=== PATIENT | female | born 1930 ===

== ENCOUNTER 2017-02-06 11:27 | Inpatient (IN) | payer MEDICARE ==
[2017-02-06] MEDS ORDERED: Sodium Chloride 0.9% 500 ML IV STA (11:55)
--- NOTE | 2017-02-06 12:08 | ED PDOC ---
HPI: Fever Fever Onset Was: 01/30/17 Did The Patient Have A Seizure Today: No Symptoms Associated With Fever: Other (poor appetite and increased weakness) Additional Comments: Arsalan Stuart is a 87 y/o female, with a past medical history of dementia and Hypertension, who was brought to the ER for fever associated with increased weakness onset this week. Daughter states the patient has had poor appetite and 3 falls. However, daughter is unsure if the patient hit her head. Coughing noted ongoing for months, also she has had frequent UTIs in the past. Patient has no medical complaints. PMD: in [facility] Past Medical History Reviewed: Historical Data, Nursing Documentation, Vital Signs Vital Signs: Last Vital Signs Temp 99.7 F H 02/06/17 14:49 Pulse 105 H 02/06/17 14:53 Resp 18 02/06/17 11:32 BP 107/73 02/06/17 11:32 Pulse Ox 99 02/06/17 14:53 - Medical History PMH: Dementia, HTN - Family History Family History: States: Unknown Family Hx - Allergies Allergies/Adverse Reactions: Allergies Allergy/AdvReac Type Severity Reaction Status Date / Time No Known Allergies Allergy Verified 02/06/17 11:32 Review of Systems ROS Statement: Except As Marked, All Systems Reviewed And Found Negative Constitutional: Positive for: Fever, Weakness (increased) Respiratory: Positive for: Cough Gastrointestinal: Positive for: Other (poor appetite) Physical Exam - Reviewed Nursing Documentation Reviewed: Yes Vital Signs Reviewed: Yes - Physical Exam Appears: Positive for: Non-toxic Head Exam: Positive for: ATRAUMATIC, NORMAL INSPECTION, NORMOCEPHALIC Skin: Positive for: Normal Color, Warm, Dry Eye Exam: Positive for: Normal appearance, EOMI, PERRL Neck: Positive for: Normal, Painless ROM, Supple Cardiovascular/Chest: Positive for: Regular Rate, Rhythm. Negative for: Murmur Respiratory: Positive for: Rhonchi (mild noted). Negative for: Respiratory Distress Gastrointestinal/Abdominal: Positive for: Normal Exam, Bowel Sounds, Soft. Negative for: Tenderness, Guarding, Rebound Back: Positive for: Normal Inspection. Negative for: L CVA Tenderness, R CVA Tenderness Extremity: Positive for: Normal ROM. Negative for: Deformity, Swelling Neurologic/Psych: Positive for: Alert, Oriented - Laboratory Results Result Diagrams: 02/06/17 12:40 02/06/17 12:40 - ECG ECG Rhythm: Positive for: Sinus Tachycardia, Nonspecific Changes Rate: 105 O2 Sat by Pulse Oximetry: 99 (RA) Pulse Ox Interpretation: Normal - Progress ED Course And Treament: VBG: LACTATE 2.2 NS 500ML BOLUS CXR: NAD TYLENOL 975MG X 1 DOSE ROCEPHIN 1 GM IV X 1 DOSE REPEAT EKG NSR 88BPM; NO ECTOPY; NO ACUTE CHANGES AT 14:20 LACTATE REPEATED 1.[address] DAMON. Medical Decision Making Medical Decision Making: Initial Impression: Fever Initial Plan: --Venous Blood Gas Shock Panel --Cervical spine w/o contrast [CT] --Head w/o contrast [CT] --EKG --Comp Metabolic Panel --Magnesium --Troponin I --CBC w/ differential --Chest portable [RAD] --Tylenol 975 mg PO --NS IV 500 ml @ 500 mls/hr --Blood culture --Urine culture --Urinalysis --reevaluation -Rectal temperature of 101.6 1337 Chest x-ray FINDINGS: LUNGS: The lungs are hyperinflated and there is peribronchial thickening with chronic changes in both lungs. There is mild interstitial thickening in the lower lobes. There is bibasilar atelectasis. No lobar pneumonia. PLEURA: No significant pleural effusion identified, no pneumothorax apparent. CARDIOVASCULAR: Normal. OSSEOUS STRUCTURES: No significant abnormalities. VISUALIZED UPPER ABDOMEN: Normal. OTHER FINDINGS: None. IMPRESSION: No active pulmonary disease. COPD. [address] FINDINGS: HEMORRHAGE: No intracranial hemorrhage. BRAIN: No mass effect or edema. Mild atrophy and moderate white matter changes likely represent chronic microvascular ischemic disease. VENTRICLES: Unremarkable. No hydrocephalus. CALVARIUM: No evidence of acute fracture. Prior craniectomy and mesh insertion noted at the right occipital bone. PARANASAL SINUSES: Unremarkable as visualized. No significant inflammatory changes. MASTOID AIR CELLS: Unremarkable as visualized. No inflammatory changes. OTHER FINDINGS: Postsurgical changes noted at the left globe. Metallic structure seen lateral and slightly posterior to the left globe. IMPRESSION: No evidence of acute intracranial hemorrhage intracranial collection mass effect or midline shift. Mild atrophy and moderate white matter changes. CT CSPINE: IMPRESSION: No CT evidence of acute displaced fracture. Mild grade 1 anterior spondylolisthesis of C4 relative to C5 likely due to severe degenerative changes. No evidence of significant spinal or neural foraminal narrowing. Scribe Attestation: Documented by Matias Johnson, acting as a scribe for Charlie Cook PA-C Provider Scribe Attestation: All medical record entries made by the Scribe were at my direction and personally dictated by me. I have reviewed the chart and agree that the record accurately reflects my personal performance of the history, physical exam, medical decision making, and the department course for this patient. I have also personally directed, reviewed, and agree with the discharge instructions and disposition. Disposition - Clinical Impression Clinical Impression: UTI (urinary tract infection) - Patient ED Disposition Is Patient to be Admitted: Yes - Disposition Disposition Time: 14:53 Condition: STABLE Forms: [employer] ([place])
[2017-02-06] MEDS ORDERED: cefTRIAXone (Rocephin) 1 gm Inj IVPB ONE (12:10)
[2017-02-06 12:27] LABS: RBC URINE 21 /hpf (0-3); URINE BACTERIA MANY (<OCC); URINE BILIRUBIN NEGATIVE (NEGATIVE); URINE BLOOD MODERATE (NEGATIVE); URINE COLOR YELLOW (YELLOW); URINE GLUCOSE (UA) NEG (Normal); URINE KETONE NEGATIVE (NEGATIVE); URINE LEUKOCYTE ESTERASE LARGE Leu/uL (Negative); URINE PROTEIN 100 mg/dL (NEGATIVE); URINE UROBILINOGEN 0.2-1.0 mg/dL (0.2-1.0); WBC URINE 103 /hpf (0-5)
[2017-02-06] MEDS ORDERED: cefTRIAXone IV 1 gm in Dextros 50 ML IVPB ONE ×2 (12:30→12:31)
[2017-02-06 12:44] LABS: VENOUS BLOOD GAS PCO2 32 mmHg (40-60); VENOUS BLOOD PH 7.51 (7.32-7.43)
[2017-02-06 12:57] LABS: BASO % 0.2 % (0.0-2.0); HEMATOCRIT 42.5 % (34.0-47.0); LYMPH # 0.6 K/uL (1.0-4.3); LYMPH % 2.9 % (20.0-40.0); MEAN CELL VOLUME 90.5 fl (81.0-99.0); MEAN CORPUSCULAR HEMOGLOBIN 30.5 pg (27.0-31.0); MEAN CORPUSCULAR HGB CONC 33.7 g/dL (33.0-37.0); MEAN PLATELET VOLUME 10.1 fl (7.2-11.7); MONO # 1.2 K/uL (0.0-0.8); MONO % 6.1 % (0.0-10.0); NEUT # 17.4 K/uL (1.8-7.0); NEUT % 90.8 % (50.0-75.0); PLATELET COUNT 137 K/uL (130-400); RED CELL DISTRIBUTION WIDTH 14.8 % (11.5-14.5); WHITE BLOOD COUNT 19.2 K/uL (4.8-10.8)
[2017-02-06 13:08] LABS: ALKALINE PHOSPHATASE 110 U/L (38-126); ALT/SGPT 52 U/L (9-52); AST/SGOT 35 U/L (14-36); BLOOD UREA NITROGEN 53 mg/dl (7-17); CALCIUM 9.3 mg/dL (8.4-10.2); CARBON DIOXIDE 23 mmol/L (22-30); CHLORIDE 111 mmol/L (98-107); GFR AFRICAN-AMERICAN 26; GLUCOSE,RANDOM 113 mg/dL (65-105); MAGNESIUM 2.8 MG/DL (1.6-2.3); POTASSIUM 3.9 MMOL/L (3.6-5.0); SODIUM 148 mmol/l (132-148); TOTAL PROTEIN 7.1 G/DL (6.3-8.2)
[2017-02-06 13:21] LABS: NEUTROPHIL 93 % (42-75); REACTIVE LYMPHOCYTES 1 % (0-0); TOTAL CELLS COUNTED 100
[2017-02-06 13:23] LABS: LARGE PLATELETS PRESENT
--- NOTE | 2017-02-06 13:39 | RAD ---
HISTORY: routine COMPARISON: No prior. FINDINGS: LUNGS: The lungs are hyperinflated and there is peribronchial thickening with chronic changes in both lungs. There is mild interstitial thickening in the lower lobes. There is bibasilar atelectasis. No lobar pneumonia. PLEURA: No significant pleural effusion identified, no pneumothorax apparent. CARDIOVASCULAR: Normal. OSSEOUS STRUCTURES: No significant abnormalities. VISUALIZED UPPER ABDOMEN: Normal. OTHER FINDINGS: None. IMPRESSION: No active pulmonary disease. COPD.
--- NOTE | 2017-02-06 14:17 | CT ---
PROCEDURE: CT HEAD WITHOUT CONTRAST. HISTORY: head injury COMPARISON: Postsurgical changes noted at the left globe and in the right occipital bone. TECHNIQUE: Axial computed tomography images were obtained through the head/brain without intravenous contrast. Radiation dose: Total exam DLP = 792.38 mGy-cm. This CT exam was performed using one or more of the following dose reduction techniques: Automated exposure control, adjustment of the mA and/or kV according to patient size, and/or use of iterative reconstruction technique. FINDINGS: HEMORRHAGE: No intracranial hemorrhage. BRAIN: No mass effect or edema. Mild atrophy and moderate white matter changes likely represent chronic microvascular ischemic disease. VENTRICLES: Unremarkable. No hydrocephalus. CALVARIUM: No evidence of acute fracture. Prior craniectomy and mesh insertion noted at the right occipital bone. PARANASAL SINUSES: Unremarkable as visualized. No significant inflammatory changes. MASTOID AIR CELLS: Unremarkable as visualized. No inflammatory changes. OTHER FINDINGS: Postsurgical changes noted at the left globe. Metallic structure seen lateral and slightly posterior to the left globe. IMPRESSION: No evidence of acute intracranial hemorrhage intracranial collection mass effect or midline shift. Mild atrophy and moderate white matter changes.
--- NOTE | 2017-02-06 14:30 | CT ---
PROCEDURE: CT Cervical Spine without contrast HISTORY: Status post fall. COMPARISON: None available. TECHNIQUE: Axial computed tomography images were obtained of the cervical spine without the use of intravenous contrast. Coronal and sagittal reformatted images were created and reviewed. Radiation dose: Total exam DLP = 338.7 mGy-cm. This CT exam was performed using one or more of the following dose reduction techniques: Automated exposure control, adjustment of the mA and/or kV according to patient size, and/or use of iterative reconstruction technique. FINDINGS: VERTEBRAE: No fracture. Mild grade 1 anterior spondylolisthesis of C4 relative to C5 noted likely due to degenerative changes. . No destructive bony lesion. DISCS/SPINAL CANAL/NEURAL FORAMINA: No significant central canal or neural foraminal stenosis. Multilevel degenerative disc changes associated with osteophyte and narrowing of the disc space more prominent at C3-C4 PARASPINAL SOFT TISSUES: Unremarkable. OTHER FINDINGS: None. IMPRESSION: No CT evidence of acute displaced fracture. Mild grade 1 anterior spondylolisthesis of C4 relative to C5 likely due to severe degenerative changes. No evidence of significant spinal or neural foraminal narrowing.
[2017-02-06 14:49] LABS: VENOUS BLOOD GAS PCO2 29 mmHg (40-60); VENOUS BLOOD PH 7.51 (7.32-7.43)
--- NOTE | 2017-02-06 17:37 | CARD ---
APPROVED REPORT EKG Measurement Heart [id number] AL 124P-3 [id number] <Conclusion> Sinus tachycardia Low voltage QRS Nonspecific ST and T wave abnormality Abnormal ECG
[2017-02-06 17:42] VITALS: BMI 20.7
--- NOTE | 2017-02-06 23:18 | CP.PCM.HP ---
Past Patient History - Past Medical History & Family History Past Medical History?: Yes - Past Social History Smoking Status: Never Smoked - CARDIAC Hx Cardiac Disorders: Yes Hx Hypercholesterolemia: Yes Hx Hypertension: Yes - PULMONARY Hx Respiratory Disorders: No - NEUROLOGICAL Hx Neurological Disorder: Yes Hx Alzheimer's Disease: Yes Hx Dementia: Yes - HEENT Hx HEENT Problems: No - RENAL Hx Chronic Kidney Disease: No - ENDOCRINE/METABOLIC Hx Endocrine Disorders: No - HEMATOLOGICAL/ONCOLOGICAL Hx Blood Disorders: No Hx AIDS: No Hx Human Immunodeficiency Virus (HIV): No - INTEGUMENTARY Hx Dermatological Problems: No - MUSCULOSKELETAL/RHEUMATOLOGICAL Hx Musculoskeletal Disorders: Yes Hx Falls: Yes - GASTROINTESTINAL Hx Gastrointestinal Disorders: No - GENITOURINARY/GYNECOLOGICAL Hx Genitourinary Disorders: No - PSYCHIATRIC Hx Psychophysiologic Disorder: No Hx Substance Use: No - SURGICAL HISTORY Hx Surgeries: Yes Hx Orthopedic Surgery: Yes Other/Comment: per daughter, "cyst removal" - ANESTHESIA Hx Anesthesia: Yes Hx Anesthesia Reactions: No Hx Malignant Hyperthermia: No Meds Allergies/Adverse Reactions: Allergies Allergy/AdvReac Type Severity Reaction Status Date / Time No Known Allergies Allergy Verified 02/06/17 11:32 Results - Vital Signs Recent Vital Signs: Last Vital Signs Temp 97.7 F 02/06/17 20:26 Pulse 90 02/06/17 20:34 Resp 20 02/06/17 20:26 BP 140/81 02/06/17 20:26 Pulse Ox 96 02/06/17 20:26 - Labs Result Diagrams: 02/06/17 12:40 02/06/17 12:40 Labs: Laboratory Results - last 24 hr 02/06/17 02/06/17 02/06/17 11:55 12:14 12:40 WBC RBC Hgb Hct MCV MCH MCHC RDW Plt Count MPV Neut % (Auto) Lymph % (Auto) [place] % (Auto) Eos % (Auto) Baso % (Auto) Neut # Lymph # [place] # Eos # Baso # Neutrophils % (Manual) Band Neutrophils % Lymphocytes % (Manual) Reactive Lymphs % Monocytes % (Manual) Platelet Estimate Large Platelets Poikilocytosis (manual Anisocytosis (manual) Ovalocytes [place] Cells pO2 VBG pH VBG pCO2 VBG HCO3 VBG Total CO2 VBG O2 Sat (Calc) VBG Base Excess VBG Potassium A-a O2 Difference Glucose Lactate FiO2 Crit Value Called To Crit Value Called By Crit Value Read Back Blood Gas Notified Time Sodium 148 Potassium 3.9 Chloride 111 H Carbon Dioxide 23 Anion Gap 18 BUN 53 H Creatinine 2.2 H Est GFR ( Amer) 26 Est GFR (Non-Af Amer) 21 POC Glucose (mg/dL) 131 H Random Glucose 113 H Calcium 9.3 Magnesium 2.8 H Total Bilirubin 1.0 AST 35 ALT 52 Alkaline Phosphatase 110 Troponin I < 0.0120 Total Protein 7.1 Albumin 3.6 Globulin 3.5 Albumin/Globulin Ratio 1.0 Venous Blood Potassium Urine Color Yellow Urine Clarity Cloudy Urine pH 6.0 Ur Specific [place] 1.012 Urine Protein 100 Urine Glucose (UA) Neg Urine Ketones Negative Urine Blood Moderate Urine Nitrate Positive H Urine Bilirubin Negative Urine Urobilinogen 0.2-1.0 Ur Leukocyte Esterase Large Urine RBC (Auto) 21 H Urine Microscopic WBC 103 H Ur Squamous Epith Cells 2 Amorphous Sediment Rare H Urine Bacteria Many H 02/06/17 02/06/17 02/06/17 12:40 12:41 14:46 WBC 19.2 H RBC 4.70 Hgb 14.3 Hct 42.5 MCV 90.5 MCH 30.5 MCHC 33.7 RDW 14.8 H Plt Count 137 MPV 10.1 Neut % (Auto) 90.8 H Lymph % (Auto) 2.9 L [place] % (Auto) 6.1 Eos % (Auto) 0.0 Baso % (Auto) 0.2 Neut # 17.4 H Lymph # 0.6 L [place] # 1.2 H Eos # 0.0 Baso # 0.0 Neutrophils % (Manual) 93 H Band Neutrophils % 2 Lymphocytes % (Manual) 2 L Reactive Lymphs % 1 H Monocytes % (Manual) 2 Platelet Estimate Normal Large Platelets Present Poikilocytosis (manual Slight Anisocytosis (manual) Slight Ovalocytes Slight [place] Cells Slight pO2 23 L 54 VBG pH 7.51 H 7.51 H VBG pCO2 32 L 29 L VBG HCO3 25.9 25.5 VBG Total CO2 26.5 24.0 VBG O2 Sat (Calc) 54.7 95.6 H VBG Base Excess 3.0 H 1.0 VBG Potassium 4.0 3.4 L A-a O2 Difference 87.0 59.0 Glucose 117 H 117 H Lactate 2.2 H 1.2 FiO2 21.0 21.0 Crit Value Called To Dr mary andersen Crit Value Called By 15 Crit Value Read Back Y Blood Gas Notified Time 1244 Sodium 142.0 140.0 Potassium Chloride 111.0 H 112.0 H Carbon Dioxide Anion Gap BUN Creatinine Est GFR ( Amer) Est GFR (Non-Af Amer) POC Glucose (mg/dL) Random Glucose Calcium Magnesium Total Bilirubin AST ALT Alkaline Phosphatase Troponin I Total Protein Albumin Globulin Albumin/Globulin Ratio Venous Blood Potassium 4.0 3.4 L Urine Color Urine Clarity Urine pH Ur Specific [place] Urine Protein Urine Glucose (UA) Urine Ketones Urine Blood Urine Nitrate Urine Bilirubin Urine Urobilinogen Ur Leukocyte Esterase Urine RBC (Auto) Urine Microscopic WBC Ur Squamous Epith Cells Amorphous Sediment Urine Bacteria
[2017-02-07] MEDS ORDERED: cefTRIAXone IV 1 gm in Dextros 50 ML IVPB SCH (09:00)
[2017-02-07] MEDS ORDERED: cefTRIAXone (Rocephin) 2 gm Inj IVPB SCH (09:00)
[2017-02-07] MEDS: Sodium Chloride 0.45% 1,000 ML IV SCH (09:20)
[2017-02-07 09:34] LABS: BASO % 0.3 % (0.0-2.0); EOS % 0.1 % (0.0-4.0); HEMATOCRIT 38.9 % (34.0-47.0); LYMPH # 0.4 K/uL (1.0-4.3); LYMPH % 2.6 % (20.0-40.0); MEAN CELL VOLUME 89.9 fl (81.0-99.0); MEAN CORPUSCULAR HEMOGLOBIN 29.7 pg (27.0-31.0); MEAN PLATELET VOLUME 9.5 fl (7.2-11.7); MONO % 5.9 % (0.0-10.0); NEUT # 15.2 K/uL (1.8-7.0); NEUT % 91.1 % (50.0-75.0); NRBC % 0.1 % (0.0-0.0); PLATELET COUNT 123 K/uL (130-400); RED CELL DISTRIBUTION WIDTH 15.1 % (11.5-14.5); WHITE BLOOD COUNT 16.6 K/uL (4.8-10.8)
[2017-02-07 09:45] LABS: CALCIUM 8.6 mg/dL (8.4-10.2); POTASSIUM 3.1 MMOL/L (3.6-5.0)
[2017-02-07] MEDS: Meropenem 500 MG in Sodium Chloride 0.9% 100 ML IVPB SCH ×2 (11:38→16:46)
[2017-02-07 12:26] LABS: NEUTROPHIL 90 % (42-75); TOTAL CELLS COUNTED 100
[2017-02-07 12:27] LABS: GIANT PLATELETS PRESENT; LARGE PLATELETS PRESENT
[2017-02-07] MEDS ORDERED: Potassium Chloride 20 mEq ER Tab PO ONE (19:33)
--- NOTE | 2017-02-07 23:09 | CP.PCM.PN ---
Subjective - Date & Time of Evaluation Date of Evaluation: 02/07/17 Time of Evaluation: 08:30 Objective - Vital Signs/Intake and Output Vital Signs (last 24 hours): Temp Pulse Resp BP Pulse Ox 98.3 F 100 H 18 137/88 95 02/07/17 20:02 02/07/17 21:00 02/07/17 20:02 02/07/17 20:02 02/07/17 20:02 Intake and Output: 02/07/17 02/08/17 18:59 06:59 Intake Total 2450 Balance 2450 - Medications Medications: Current Medications Atorvastatin Calcium (Lipitor) 10 mg PO DAILY [facility] Last Admin: 02/07/17 09:10 Dose: 10 mg Donepezil HCl (Aricept) 5 mg PO DAILY [facility] Last Admin: 02/07/17 09:10 Dose: 5 mg Meropenem 500 mg/ Sodium (Chloride) 100 mls @ 100 mls/hr IVPB Q8 [facility] PRN Reason: Protocol Last Admin: 02/07/17 16:46 Dose: 100 mls/hr Sodium Chloride (Sodium Chloride 0.45%) 1,000 mls @ 100 mls/hr IV .Q10H [facility] Stop: 02/08/17 08:51 Last Admin: 02/07/17 09:20 Dose: 100 mls/hr - Labs Labs: 02/07/17 08:45 02/07/17 08:45
[2017-02-08] MEDS: Sodium Chloride 0.45% 1,000 ML IV SCH ×2 (00:26→10:58)
[2017-02-08] MEDS: Meropenem 500 MG in Sodium Chloride 0.9% 100 ML IVPB SCH ×3 (00:27→17:48)
--- NOTE | 2017-02-08 23:19 | CP.PCM.PN ---
Subjective - Date & Time of Evaluation Date of Evaluation: 02/08/17 Time of Evaluation: 11:10 Objective - Vital Signs/Intake and Output Vital Signs (last 24 hours): Temp Pulse Resp BP Pulse Ox 98.2 F 102 H 20 129/83 98 02/08/17 19:21 02/08/17 20:12 02/08/17 19:21 02/08/17 19:21 02/08/17 19:21 Intake and Output: 02/08/17 02/09/17 18:59 06:59 Intake Total 2150 Balance 2150 - Medications Medications: Current Medications Atorvastatin Calcium (Lipitor) 10 mg PO DAILY [facility] Last Admin: 02/08/17 09:04 Dose: 10 mg Donepezil HCl (Aricept) 5 mg PO DAILY [facility] Last Admin: 02/08/17 09:04 Dose: 5 mg Meropenem 500 mg/ Sodium (Chloride) 100 mls @ 100 mls/hr IVPB Q8 [facility] PRN Reason: Protocol Last Admin: 02/08/17 17:48 Dose: 100 mls/hr - Labs Labs: 02/07/17 08:45 02/07/17 08:45
[2017-02-09] MEDS: Meropenem 500 MG in Sodium Chloride 0.9% 100 ML IVPB SCH ×2 (01:26→09:54)
[2017-02-09 05:40] LABS: CALCIUM 8.3 mg/dL (8.4-10.2); POTASSIUM 3.6 MMOL/L (3.6-5.0)
[2017-02-09 10:15] LABS: HEMATOCRIT 39.9 % (34.0-47.0); MEAN CELL VOLUME 91.5 fl (81.0-99.0); MEAN CORPUSCULAR HEMOGLOBIN 29.9 pg (27.0-31.0); MEAN CORPUSCULAR HGB CONC 32.7 g/dL (33.0-37.0); RED CELL DISTRIBUTION WIDTH 15.6 % (11.5-14.5); WHITE BLOOD COUNT 14.7 K/uL (4.8-10.8)
--- NOTE | 2017-02-09 11:02 | CP.PCM.CON ---
History of Present Illness - History of Present Illness History of Present Illness: Arsalan Stuart is a 87 y/o female, with a past medical history of dementia and Hypertension, who was brought to the ER for fever associated with increased weakness onset this week with history of recurrent UTIs and now in hospital with e coli bacteremia Past Patient History - Past Medical History & Family History Past Medical History?: Yes - Past Social History Smoking Status: Never Smoked - CARDIAC Hx Hypercholesterolemia: Yes Hx Hypertension: Yes - PULMONARY Hx Respiratory Disorders: No - NEUROLOGICAL Hx Neurological Disorder: Yes Hx Alzheimer's Disease: Yes Hx Dementia: Yes - HEENT Hx HEENT Problems: No - RENAL Hx Chronic Kidney Disease: No - ENDOCRINE/METABOLIC Hx Endocrine Disorders: No - HEMATOLOGICAL/ONCOLOGICAL Hx Blood Disorders: No Hx AIDS: No Hx Human Immunodeficiency Virus (HIV): No - INTEGUMENTARY Hx Dermatological Problems: No - MUSCULOSKELETAL/RHEUMATOLOGICAL Hx Musculoskeletal Disorders: Yes Hx Falls: Yes - GASTROINTESTINAL Hx Gastrointestinal Disorders: No - GENITOURINARY/GYNECOLOGICAL Hx Genitourinary Disorders: No - PSYCHIATRIC Hx Psychophysiologic Disorder: No Hx Substance Use: No - SURGICAL HISTORY Hx Surgeries: Yes Hx Orthopedic Surgery: Yes Other/Comment: per daughter, "cyst removal" - ANESTHESIA Hx Anesthesia: Yes Hx Anesthesia Reactions: No Hx Malignant Hyperthermia: No Meds Allergies/Adverse Reactions: Allergies Allergy/AdvReac Type Severity Reaction Status Date / Time No Known Allergies Allergy Verified 02/06/17 11:32 - Medications Medications: Current Medications Atorvastatin Calcium (Lipitor) 10 mg PO DAILY [facility] Last Admin: 02/09/17 09:55 Dose: 10 mg Donepezil HCl (Aricept) 5 mg PO DAILY [facility] Last Admin: 02/09/17 09:55 Dose: 5 mg Meropenem 500 mg/ Sodium (Chloride) 100 mls @ 100 mls/hr IVPB Q8 [facility] PRN Reason: Protocol Last Admin: 02/09/17 09:54 Dose: 100 mls/hr Results - Vital Signs Recent Vital Signs: Last Vital Signs Temp 97.7 F 02/09/17 08:13 Pulse 84 02/09/17 08:13 Resp 19 02/09/17 08:13 BP 143/88 02/09/17 08:13 Pulse Ox 98 02/09/17 08:13 - Labs Result Diagrams: 02/09/17 10:11 02/09/17 04:20 Labs: Laboratory Results - last 24 hr 02/09/17 02/09/17 04:20 10:11 WBC 14.7 H RBC 4.36 Hgb 13.0 Hct 39.9 MCV 91.5 MCH 29.9 MCHC 32.7 L RDW 15.6 H Plt Count 151 Sodium 147 Potassium 3.6 Chloride 117 H Carbon Dioxide 22 Anion Gap 12 BUN 31 H Creatinine 1.4 H Est GFR ( Amer) 43 Est GFR (Non-Af Amer) 36 Random Glucose 127 H Calcium 8.3 L Assessment & Plan - Assessment and Plan (Free Text) Assessment: E coli bacteremia E. coli UTI Sensitive to Ceftriaxone. Switch to ceftriaxone for total of weeks of antibiotics
[2017-02-09] MEDS: cefTRIAXone IV 1 gm in Dextros 50 ML IVPB SCH (12:26)
--- NOTE | 2017-02-09 12:43 | CARD ---
APPROVED REPORT EKG Measurement Heart [id number] [place] [id number] <Conclusion> Normal sinus rhythm Nonspecific ST and T wave abnormality Abnormal ECG
--- NOTE | 2017-02-09 23:55 | CP.PCM.PN ---
Subjective - Date & Time of Evaluation Date of Evaluation: 02/09/17 Time of Evaluation: 09:05 Objective - Vital Signs/Intake and Output Vital Signs (last 24 hours): Temp Pulse Resp BP Pulse Ox 97.3 F L 98 H 20 126/85 99 02/09/17 20:16 02/09/17 20:16 02/09/17 20:16 02/09/17 20:16 02/09/17 20:16 Intake and Output: 02/09/17 02/10/17 18:59 06:59 Intake Total 1070 Balance 1070 - Medications Medications: Current Medications Atorvastatin Calcium (Lipitor) 10 mg PO DAILY [facility] Last Admin: 02/09/17 09:55 Dose: 10 mg Donepezil HCl (Aricept) 5 mg PO DAILY [facility] Last Admin: 02/09/17 09:55 Dose: 5 mg Ceftriaxone Sodium (Rocephin Iv 1 Gm Duplex) 50 mls @ 50 mls/hr IVPB DAILY [facility] PRN Reason: Protocol Last Admin: 02/09/17 12:26 Dose: 50 mls/hr - Labs Labs: 02/09/17 10:11 02/09/17 04:20
[2017-02-10 06:12] LABS: HEMATOCRIT 39.8 % (34.0-47.0); MEAN CELL VOLUME 91.5 fl (81.0-99.0); MEAN CORPUSCULAR HEMOGLOBIN 30.1 pg (27.0-31.0); MEAN CORPUSCULAR HGB CONC 32.9 g/dL (33.0-37.0); RED CELL DISTRIBUTION WIDTH 15.2 % (11.5-14.5); WHITE BLOOD COUNT 15.5 K/uL (4.8-10.8)
[2017-02-10 06:22] LABS: CALCIUM 8.3 mg/dL (8.4-10.2); POTASSIUM 3.5 MMOL/L (3.6-5.0)
[2017-02-10] MEDS: cefTRIAXone IV 1 gm in Dextros 50 ML IVPB SCH (08:47)
[2017-02-10] MEDS: Enoxaparin 30 mg Syringe SC SCH (17:13)
[2017-02-11 05:15] LABS: HEMATOCRIT 39.7 % (34.0-47.0); MEAN CELL VOLUME 91.7 fl (81.0-99.0); MEAN CORPUSCULAR HEMOGLOBIN 29.9 pg (27.0-31.0); MEAN CORPUSCULAR HGB CONC 32.6 g/dL (33.0-37.0); RED CELL DISTRIBUTION WIDTH 15.1 % (11.5-14.5); WHITE BLOOD COUNT 17.1 K/uL (4.8-10.8)
[2017-02-11 05:41] LABS: BLOOD UREA NITROGEN 24 mg/dl (7-17); CALCIUM 8.4 mg/dL (8.4-10.2); CARBON DIOXIDE 20 mmol/L (22-30); CHLORIDE 112 mmol/L (98-107); GFR AFRICAN-AMERICAN > 60; GLUCOSE,RANDOM 93 mg/dL (65-105); POTASSIUM 3.5 MMOL/L (3.6-5.0); SODIUM 143 mmol/l (132-148)
[2017-02-11 08:20] VITALS: RESP 18
[2017-02-11] MEDS ORDERED: Potassium Chloride 20 mEq ER Tab PO ONE (08:45)
[2017-02-11] MEDS: Enoxaparin 30 mg Syringe SC SCH (09:25)
[2017-02-11] MEDS: cefTRIAXone IV 1 gm in Dextros 50 ML IVPB SCH (09:30)
[2017-02-11 12:44] VITALS: BP 125/86; PULSE 87; TEMP 97.9; O2SAT 97
--- NOTE | 2017-02-11 22:05 | CP.PCM.PN ---
Subjective - Date & Time of Evaluation Date of Evaluation: 02/10/17 Time of Evaluation: 18:30 Objective - Vital Signs/Intake and Output Vital Signs (last 24 hours): Temp Pulse Resp BP Pulse Ox 97.9 F 87 18 125/86 97 02/11/17 12:00 02/11/17 12:00 02/11/17 12:00 02/11/17 12:00 02/11/17 12:00 Intake and Output: 02/11/17 02/12/17 18:59 06:59 Intake Total 1250 Balance 1250 - Labs Labs: 02/11/17 04:40 02/11/17 04:40
--- NOTE | 2017-02-11 22:06 | CP.PCM.DIS ---
Provider - Provider Date of Admission: 02/06/17 15:00 Attending physician: Nasra Nazario MD Consults: 02/06/17 18:12 Case Management Referral Routine Comment: Physician Instructions: Reason For Exam: LIVES ALONE Reason for Referral: Discharge Planning 02/06/17 18:15 Social Work Referral Routine Comment: Discharge planning Physician Instructions: Reason For Exam: LIVES ALONE Time Spent in preparation of Discharge (in minutes): 25 Hospital Course - Lab Results Lab Results: Micro Results 02/09/17 11:08 Blood-Venous Blood Culture - Preliminary NO GROWTH AFTER 48 HOURS 02/09/17 07:24 Urine Urine Culture - Preliminary Gram Negative Eliezer 02/06/17 12:40 Blood Blood Culture - Final Escherichia Coli 02/06/17 12:40 Blood Gram Stain - Final 02/06/17 12:10 Blood Blood Culture - Final Escherichia Coli 02/06/17 12:10 Blood Gram Stain - Final 02/06/17 12:14 Urine Urine Culture - Final Escherichia Coli Most Recent Lab Values WBC 17.1 K/uL (4.8-10.8) H 02/11/17 04:40 RBC 4.32 Mil/uL (3.80-5.20) 02/11/17 04:40 Hgb 12.9 g/dL (12.0-16.0) 02/11/17 04:40 Hct 39.7 % (34.0-47.0) 02/11/17 04:40 MCV 91.7 fl (81.0-99.0) 02/11/17 04:40 MCH 29.9 pg (27.0-31.0) 02/11/17 04:40 MCHC 32.6 g/dL (33.0-37.0) L 02/11/17 04:40 RDW 15.1 % (11.5-14.5) H 02/11/17 04:40 Plt Count 188 K/uL (130-400) 02/11/17 04:40 MPV 9.5 fl (7.2-11.7) 02/07/17 08:45 Neut % (Auto) 91.1 % (50.0-75.0) H 02/07/17 08:45 Lymph % (Auto) 2.6 % (20.0-40.0) L 02/07/17 08:45 Trigg % (Auto) 5.9 % (0.0-10.0) 02/07/17 08:45 Eos % (Auto) 0.1 % (0.0-4.0) 02/07/17 08:45 Baso % (Auto) 0.3 % (0.0-2.0) 02/07/17 08:45 Neut # 15.2 K/uL (1.8-7.0) H 02/07/17 08:45 Lymph # 0.4 K/uL (1.0-4.3) L 02/07/17 08:45 Trigg # 1.0 K/uL (0.0-0.8) H 02/07/17 08:45 Eos # 0.0 K/uL (0.0-0.7) 02/07/17 08:45 Baso # 0.0 K/uL (0.0-0.2) 02/07/17 08:45 Neutrophils % (Manual) 90 % (42-75) H 02/07/17 08:45 Band Neutrophils % 1 % (0-2) 02/07/17 08:45 Lymphocytes % (Manual) 4 % (20-50) L 02/07/17 08:45 Reactive Lymphs % 1 % (0-0) H 02/06/17 12:40 Monocytes % (Manual) 5 % (0-10) 02/07/17 08:45 Platelet Estimate Slightly decreased (NORMAL) L 02/07/17 08:45 Large Platelets Present 02/07/17 08:45 Giant Platelets Present 02/07/17 08:45 Poikilocytosis (manual Slight 02/07/17 08:45 Anisocytosis (manual) Slight 02/07/17 08:45 Tear Drop Cells Slight 02/07/17 08:45 Ovalocytes Slight 02/06/17 12:40 [place] Cells Slight 02/06/17 12:40 pO2 54 mm/Hg (30-55) 02/06/17 14:46 VBG pH 7.51 (7.32-7.43) H 02/06/17 14:46 VBG pCO2 29 mmHg (40-60) L 02/06/17 14:46 VBG HCO3 25.5 mmol/L 02/06/17 14:46 VBG Total CO2 24.0 mmol/L (22-28) 02/06/17 14:46 VBG O2 Sat (Calc) 95.6 % (40-65) H 02/06/17 14:46 VBG Base Excess 1.0 mmol/L (0.0-2.0) 02/06/17 14:46 VBG Potassium 3.4 mmol/L (3.6-5.2) L 02/06/17 14:46 A-a O2 Difference 59.0 mm/Hg 02/06/17 14:46 Sodium 140.0 mmol/L (132-148) 02/06/17 14:46 Chloride 112.0 mmol/L (98-107) H 02/06/17 14:46 Glucose 117 mg/dL (65-105) H 02/06/17 14:46 Lactate 1.2 mmol/L (0.7-2.1) 02/06/17 14:46 FiO2 21.0 % 02/06/17 14:46 Crit Value Called To Dr mary andersen 02/06/17 12:41 Crit Value Called By Kamari 02/06/17 12:41 Crit Value Read Back Y 02/06/17 12:41 Blood Gas Notified Time 1244 02/06/17 12:41 Sodium 143 mmol/l (132-148) 02/11/17 04:40 Potassium 3.5 MMOL/L (3.6-5.0) L 02/11/17 04:40 Chloride 112 mmol/L (98-107) H 02/11/17 04:40 Carbon Dioxide 20 mmol/L (22-30) L 02/11/17 04:40 Anion Gap 14 (10-20) 02/11/17 04:40 BUN 24 mg/dl (7-17) H 02/11/17 04:40 Creatinine 1.0 mg/dl (0.7-1.2) 02/11/17 04:40 Est GFR ( Amer) > 60 02/11/17 04:40 Est GFR (Non-Af Amer) 53 02/11/17 04:40 POC Glucose (mg/dL) 131 mg/dL (65-110) H 02/06/17 11:55 Random Glucose 93 mg/dL (65-105) 02/11/17 04:40 Calcium 8.4 mg/dL (8.4-10.2) 02/11/17 04:40 Magnesium 2.8 MG/DL (1.6-2.3) H 02/06/17 12:40 Total Bilirubin 1.0 mg/dl (0.2-1.3) 02/06/17 12:40 AST 35 U/L (14-36) 02/06/17 12:40 ALT 52 U/L (9-52) 02/06/17 12:40 Alkaline Phosphatase 110 U/L (38-126) 02/06/17 12:40 Troponin I < 0.0120 ng/mL (0.00-0.120) 02/06/17 12:40 Total Protein 7.1 G/DL (6.3-8.2) 02/06/17 12:40 Albumin 3.6 g/dL (3.5-5.0) 02/06/17 12:40 Globulin 3.5 gm/dL (2.2-3.9) 02/06/17 12:40 Albumin/Globulin Ratio 1.0 (1.0-2.1) 02/06/17 12:40 Venous Blood Potassium 3.4 mmol/L (3.6-5.2) L 02/06/17 14:46 Urine Color Yellow (YELLOW) 02/06/17 12:14 Urine Clarity Cloudy (Clear) 02/06/17 12:14 Urine pH 6.0 (5.0-8.0) 02/06/17 12:14 Ur Specific [place] 1.012 (1.003-1.030) 02/06/17 12:14 Urine Protein 100 mg/dL (NEGATIVE) 02/06/17 12:14 Urine Glucose (UA) Neg mg/dL (Normal) 02/06/17 12:14 Urine Ketones Negative mg/dL (NEGATIVE) 02/06/17 12:14 Urine Blood Moderate (NEGATIVE) 02/06/17 12:14 Urine Nitrate Positive (NEGATIVE) H 02/06/17 12:14 Urine Bilirubin Negative (NEGATIVE) 02/06/17 12:14 Urine Urobilinogen 0.2-1.0 mg/dL (0.2-1.0) 02/06/17 12:14 Ur Leukocyte Esterase Large Afshan/uL (Negative) 02/06/17 12:14 Urine RBC (Auto) 21 /hpf (0-3) H 02/06/17 12:14 Urine Microscopic WBC 103 /hpf (0-5) H 02/06/17 12:14 Ur Squamous Epith Cells 2 /hpf (0-5) 02/06/17 12:14 Amorphous Sediment Rare /ul (<OCC) H 02/06/17 12:14 Urine Bacteria Many (<OCC) H 02/06/17 12:14 Discharge Exam - Head Exam Head Exam: ATRAUMATIC, NORMAL INSPECTION, NORMOCEPHALIC Discharge Plan - Discharge Medications Prescriptions: cefTRIAXone 1 gm [Rocephin 1 gram IVPB] 1 gm IVPB DAILY #12 bag - Follow Up Plan Condition: STABLE Disposition: REHAB FACILITY/REHAB UNIT Instructions: Urinary Tract Infection in Women (DC), Urinary Tract Infection in Men (DC), Dysuria (GEN)
--- NOTE | 2017-02-13 10:14 | PQF GENQUE ---
This form is a permanent part of the medical record DR. WHEATLEY SEMAN: COULD YOU PLEASE CONFIRM PRINCIPAL DIAGNOSIS. URINE AND BLOOD CULTURES POSITIVE FOR E-COLI. ALL NOTES AND H&P / D/C SUMMARY ARE IN DRAFT. Clarification of your documentation is requested to better reflect the severity of illness and intensity of treatment of your patient. Indicators present [] Specify: [] [] Specify: [] [] Specify: [] [] Specify: [] Location in the medical record that reflects the above clinical findings: [] Treatment Provided: [] PHYSICIAN'S RESPONSE Based on your medical judgment of the clinical indicators outlined above please clarify the following: [X] Practitioner response: AMS, Sepsis with UTI, E. coli Bacteremia [] If unable to determine, please check the box, sign and date. Present On Admission (POA) Indicator: [] Present at the time of admission [] Not present at the time of admission [] Clinically Undetermined In responding to this query, please exercise your independent professional judgment. The fact that a question is asked does not imply that any particular answer is desired or expected. Thank you for your clarification on this documentation. If you have any questions please call:[ ] * Thank you, * NELA BAZZI [ [phone] ceo and founder MARIA FERNANDA
== END 2017-02-11 16:13 | DRG 872 ==
LOC: H.ER 11:27 → H.ERHOLD 15:00 → H.TEL 17:23
PROVIDERS: ADMIT Internal Medicine; ATTEND Internal Medicine
DX: A41.9 Sepsis, unspecified organism (principal); N39.0 Urinary tract infection, site not specified; G30.9 Alzheimer's disease, unspecified; J44.9 Chronic obstructive pulmonary disease, unspecified; F02.80 Dementia in other diseases classified elsewhere, unspecified severity, without behavioral disturbance, psychotic disturbance, mood disturbance, and anxiety; R78.81 Bacteremia; B96.20 Unspecified Escherichia coli [E. coli] as the cause of diseases classified elsewhere; E78.00 Pure hypercholesterolemia, unspecified; I10 Essential (primary) hypertension; M43.12 Spondylolisthesis, cervical region; Z87.440 Personal history of urinary (tract) infections; R53.1 Weakness